=== PATIENT | female | born 1975 | race Caucasian/White ===

== ENCOUNTER → 2016-11-03 | Outpatient (CLI) | payer BC ==
[~2016-11-03] MED LIST: LEXAPRO5 MG PO; PRENATAL1 TA1 PO; SLOW FE45 MG PO
== END ==
LOC: MC.RAD 13:57
DX: Z12.31 Encounter for screening mammogram for malignant neoplasm of breast (principal)

== ENCOUNTER → 2017-12-28 | Outpatient (CLI) | payer BC | LOC: MC.RAD 09:35 | DX: Z12.31 Encounter for screening mammogram for malignant neoplasm of breast (principal) ==

== ENCOUNTER → 2019-03-13 | Outpatient (CLI) | payer BC | LOC: MC.RAD 16:15 | DX: Z12.31 Encounter for screening mammogram for malignant neoplasm of breast (principal) ==

== ENCOUNTER → 2020-03-19 | Outpatient (CLI) | payer BC | LOC: MC.RAD 08:28 | DX: Z12.31 Encounter for screening mammogram for malignant neoplasm of breast (principal) ==

== ENCOUNTER → 2021-06-09 | Outpatient (CLI) | payer BC | LOC: MC.RAD 11:39 | DX: Z12.31 Encounter for screening mammogram for malignant neoplasm of breast (principal) ==

== ENCOUNTER → 2023-07-09 | Outpatient (CLI) | payer BC | LOC: MC.RAD 07:13 | DX: Z12.31 Encounter for screening mammogram for malignant neoplasm of breast (principal) ==